=== PATIENT | female | born 1975 | race Caucasian/White ===

== ENCOUNTER 2016-10-03 21:22 | Emergency (ER) | payer MEDICAID ==
[~2016-10-03] VITALS: Ht 162.6 cm; Wt 86.4 kg
[2016-10-03 22:02] VITALS: BP 135/89
== END 2016-10-03 22:37 | disposition home or self-care (01) ==
LOC: EMS 21:25
DX: J40 Bronchitis, not specified as acute or chronic (principal); J32.9 Chronic sinusitis, unspecified; H57.8 Other specified disorders of eye and adnexa
CPT/HCPCS: 99283

== ENCOUNTER 2019-05-05 21:17 | Inpatient (IN) | payer MEDICAID ==
[~2019-05-05] VITALS: Ht 165.1 cm; Wt 77.3 kg
[2019-05-05 22:05] LABS: BASOPHILS % (AUTO) 0.9 % (0.0-2.0); EOSINOPHILS % (AUTO) 6.4 % (1.0-6.0); HEMATOCRIT 27.3 % (36-46); HEMOGLOBIN 8.6 g/dL (12.0-16.0); LYMPHOCYTES # (AUTO) 1.7 K/uL (1.0-4.8); LYMPHOCYTES % (AUTO) 22.4 % (22.0-44.0); MEAN CORPUSCULAR HEMOGLOBIN 22.4 pg (26.0-34.0); MEAN CORPUSCULAR HGB CONC 31.4 G/dL (31.0-37.0); MEAN CORPUSCULAR VOLUME 71 fL (80-100); MONOCYTES # (AUTO) 0.5 K/uL (0.1-1.0); MONOCYTES % (AUTO) 6.8 % (2.0-9.0); NEUTROPHILS # (AUTO) 4.9 K/uL (1.8-7.7); NEUTROPHILS % (AUTO) 63.5 % (40.0-70.0); PLATELET COUNT (AUTO) 344 K/uL (150-450); RED BLOOD CELL COUNT(AUTO) 3.82 MIL/uL (4.00-5.20); RED CELL DISTRIBUTION WIDTH 17.6 % (11.5-14.5)
[2019-05-05 22:16] LABS: ANION GAP 7 mmol/L (8-16); CALCIUM, TOTAL 7.9 mg/dL (8.8-10.5); CARBON DIOXIDE 28 mmol/L (22-29); CHLORIDE 108 mmol/L (98-107); CREATININE 0.78 mg/dL (0.60-1.30); GLOMERULAR FILTR. RATE CALC > 60 mL/min (>60); GLUCOSE,RANDOM 99 mg/dL (70-110); POTASSIUM 3.4 mmol/L (3.5-5.1); SODIUM SERUM 143 mmol/L (136-145); UREA NITROGEN, BLOOD 10 mg/dL (7-18)
[2019-05-05 22:22] LABS: PROTHROMBIN TIME 10.6 SEC (9.4-11.6)
[2019-05-05 22:24] LABS: ALANINE AMINOTRANSFERASE 34 U/L (12-78); ALBUMIN 3.3 g/dL (3.4-5.0); ALKALINE PHOSPHATASE 98 U/L (46-116); ASPARTATE AMINOTRANSFERASE 27 U/L (15-37); BILIRUBIN,TOTAL 0.1 mg/dL (0.1-1.0); TOTAL PROTEIN, SERUM 6.8 g/dL (6.4-8.2)
[2019-05-06] MEDS ORDERED: MedroxyPROGESTERone ACET 5 MG TABLET PO ONE ×2 (01:15→06:00)
[2019-05-06] MEDS ORDERED: ONDANSETRON HCL 4 MG/2 ML VIAL IVP PRN ×2 (01:30→08:00)
[2019-05-06] MEDS ORDERED: ACETAMINOPHEN 325 MG TABLET PO PRN ×2 (01:30→08:00)
[2019-05-06] MEDS ORDERED: 0.9% SODIUM CHLORIDE 10 ML SYRINGE IVP PRN (01:30)
[2019-05-06 01:37] LABS: APPEARANCE,URINE CLOUDY (CLEAR); GLUCOSE, URINE (UA) NEGATIVE (NEGATIVE); KETONES,URINE 15 mg/dL (NEGATIVE); LEUKOCYTE ESTERASE ,URINE MODERATE (NEGATIVE); NITRATE,URINE NEGATIVE (NEGATIVE); OCCULT BLOOD,URINE LARGE (NEGATIVE); PROTEIN,URINE SEE CONFIRM (NEGATIVE)
[2019-05-06 01:50] LABS: BILIRUBIN,URINE PRELIM. POSITIVE (NEGATIVE)
[2019-05-06 01:54] LABS: SULFOSALICYLIC ACID,URINE 4+ (Negative)
[2019-05-06 01:55] LABS: RBC,URINE Full Field /HPF (0-2)
[2019-05-06 01:57] LABS: BACTERIA,URINE Rare /HPF (None Seen)
[2019-05-06 01:58] LABS: SQUAMOUS EPITHELIAL CELL,UR Few /LPF (None Seen)
[2019-05-06 04:46] LABS: HEMATOCRIT 23.6 % (36-46); HEMOGLOBIN 7.4 g/dL (12.0-16.0)
[2019-05-06] MEDS ORDERED: ZOLPIDEM TARTRATE 5 MG TABLET PO PRN (08:00)
[2019-05-06] MEDS ORDERED: MORPHINE SULFATE 2 MG/ML SYRINGE IVP PRN (08:00)
[2019-05-06] MEDS ORDERED: MAGNESIUM HYDROXIDE SUSPENSION 30 ML UDCUP PO PRN (08:00)
[2019-05-06] MEDS ORDERED: HYDROCODONE/ACETAMINOPHEN 5-325 MG TABLET PO PRN (08:00)
[2019-05-06] MEDS ORDERED: BISACODYL 10 MG RECTAL RECTAL SUPPOSITORY PR PRN (08:00)
[2019-05-06] MEDS: PANTOPRAZOLE SODIUM 40 MG DR TABLET PO SCH (09:20)
[2019-05-06] MEDS: DOCUSATE SODIUM 100 MG CAPSULE PO SCH ×2 (09:20→21:58)
[2019-05-06 10:48] LABS: EOSINOPHILS % (AUTO) 7.1 % (1.0-6.0); HEMATOCRIT 23.9 % (36-46); HEMOGLOBIN 7.5 g/dL (12.0-16.0); LYMPHOCYTES # (AUTO) 1.9 K/uL (1.0-4.8); LYMPHOCYTES % (AUTO) 25.2 % (22.0-44.0); MEAN CORPUSCULAR HEMOGLOBIN 22.4 pg (26.0-34.0); MEAN CORPUSCULAR HGB CONC 31.4 G/dL (31.0-37.0); MEAN CORPUSCULAR VOLUME 72 fL (80-100); MONOCYTES # (AUTO) 0.7 K/uL (0.1-1.0); MONOCYTES % (AUTO) 8.8 % (2.0-9.0); NEUTROPHILS # (AUTO) 4.4 K/uL (1.8-7.7); NEUTROPHILS % (AUTO) 57.9 % (40.0-70.0); PLATELET COUNT (AUTO) 279 K/uL (150-450); RED BLOOD CELL COUNT(AUTO) 3.34 MIL/uL (4.00-5.20); RED CELL DISTRIBUTION WIDTH 17.3 % (11.5-14.5)
[2019-05-06] MEDS ORDERED: LEUPROLIDE ACETATE 7.5 MG KIT IM ONE (11:30)
[2019-05-06] MEDS ORDERED: IRON SUCROSE COMPLEX 200 MG in SODIUM CHLORIDE 0.9% 100 ML IV ONE (11:30)
[2019-05-06 16:42] VITALS: BP 129/72
[2019-05-06 19:25] VITALS: BP 124/72
[2019-05-06 23:26] VITALS: BP 116/55
[2019-05-07 05:24] VITALS: BP 130/69
[2019-05-07 07:59] VITALS: BP 147/78
[2019-05-07] MEDS ORDERED: RINGERS SOLUTION,LACTATED 1,000 ML IV ONE (08:15)
[2019-05-07] MEDS: DOCUSATE SODIUM 100 MG CAPSULE PO SCH (08:54)
[2019-05-07] MEDS: PANTOPRAZOLE SODIUM 40 MG DR TABLET PO SCH (08:55)
[2019-05-07] MEDS ORDERED: LEUPROLIDE ACETATE 3.75 MG IM ONE (10:45)
[2019-05-07] MEDS ORDERED: DOCU-275 PO (11:44)
[2019-05-07] MEDS ORDERED: [UNRECOGNIZED DRUG - OTHER] PO (11:44)
[2019-05-07] MEDS ORDERED: LIDOCAINE/PF 2% 5 ML VIAL IM ONE (14:59)
[2019-05-07] MEDS ORDERED: PROPOFOL 1% 20 ML VIAL IVP ONE (14:59)
[2019-05-07] MEDS ORDERED: FentaNYL CITRATE-PF 100 MCG/2 ML VIAL IVP ONE (14:59)
[2019-05-07] MEDS ORDERED: MIDAZOLAM HCL 2 MG/2 ML VIAL IVP ONE (14:59)
== END 2019-05-07 15:00 | disposition home or self-care (01) | DRG 517 ==
LOC: EMS 21:18 → 4E 05-06 16:13
PROVIDERS: ADMIT Internal Medicine; ATTEND Internal Medicine
PROC: 0UDB7ZZ Extraction of Endometrium, Via Natural or Artificial Opening (ICD-10-PCS; principal; 2019-05-07 10:00)
DX: D25.9 Leiomyoma of uterus, unspecified (principal); D62 Acute posthemorrhagic anemia; N92.1 Excessive and frequent menstruation with irregular cycle; N94.6 Dysmenorrhea, unspecified; E87.6 Hypokalemia; E66.9 Obesity, unspecified; Z68.28 Body mass index [BMI] 28.0-28.9, adult
CPT/HCPCS: 76856; 85014; 85018; 86850; 86900; 86901; 86920; 87081; 88305; G0378; J1756; J1950; J2250; J2704; J3010; J3490; J7050; J7120; J9217

== ENCOUNTER 2019-05-10 00:09 | Inpatient (IN) | payer MEDICAID ==
[2019-05-10] VITALS (9 sets, daily range): BP systolic 102–113; BP diastolic 48–64
[~2019-05-10] VITALS: Ht 162.6 cm; Wt 86.4 kg
[~2019-05-10 00:09] MED LIST: DOCU-275 PO; [UNRECOGNIZED DRUG - OTHER] PO
[2019-05-10] MEDS ORDERED: SODIUM CHLORIDE 0.9% 1,000 ML IV ONE (02:45)
[2019-05-10 02:51] LABS: BASOPHILS % (AUTO) 0.8 % (0.0-2.0); EOSINOPHILS % (AUTO) 4.4 % (1.0-6.0); HEMATOCRIT 24.4 % (36-46); HEMOGLOBIN 7.6 g/dL (12.0-16.0); LYMPHOCYTES # (AUTO) 1.7 K/uL (1.0-4.8); LYMPHOCYTES % (AUTO) 13.8 % (22.0-44.0); MEAN CORPUSCULAR HEMOGLOBIN 22.9 pg (26.0-34.0); MEAN CORPUSCULAR VOLUME 74 fL (80-100); MONOCYTES # (AUTO) 0.8 K/uL (0.1-1.0); MONOCYTES % (AUTO) 6.5 % (2.0-9.0); NEUTROPHILS # (AUTO) 9.3 K/uL (1.8-7.7); NEUTROPHILS % (AUTO) 74.5 % (40.0-70.0); PLATELET COUNT (AUTO) 328 K/uL (150-450); RED BLOOD CELL COUNT(AUTO) 3.31 MIL/uL (4.00-5.20); RED CELL DISTRIBUTION WIDTH 17.1 % (11.5-14.5)
[2019-05-10 02:53] LABS: ANION GAP 4 mmol/L (8-16); CALCIUM, TOTAL 8.1 mg/dL (8.8-10.5); CARBON DIOXIDE 29 mmol/L (22-29); CHLORIDE 104 mmol/L (98-107); GLOMERULAR FILTR. RATE CALC > 60 mL/min (>60); GLUCOSE,RANDOM 139 mg/dL (70-110); POTASSIUM 4.7 mmol/L (3.5-5.1); SODIUM SERUM 137 mmol/L (136-145); UREA NITROGEN, BLOOD 7 mg/dL (7-18)
[2019-05-10 02:59] LABS: ALANINE AMINOTRANSFERASE 27 U/L (12-78); ALBUMIN 3.3 g/dL (3.4-5.0); ALKALINE PHOSPHATASE 91 U/L (46-116); ASPARTATE AMINOTRANSFERASE 21 U/L (15-37); BILIRUBIN,TOTAL 0.2 mg/dL (0.1-1.0); TOTAL PROTEIN, SERUM 6.9 g/dL (6.4-8.2)
[2019-05-10 03:37] LABS: APPEARANCE,URINE CLOUDY (CLEAR); BILIRUBIN,URINE NEGATIVE (NEGATIVE); GLUCOSE, URINE (UA) NEGATIVE (NEGATIVE); KETONES,URINE NEGATIVE (NEGATIVE); LEUKOCYTE ESTERASE ,URINE SMALL (NEGATIVE); NITRATE,URINE NEGATIVE (NEGATIVE); OCCULT BLOOD,URINE LARGE (NEGATIVE); PH,URINE 5.5 (5.0-8.0); PROTEIN,URINE POS 1+ (NEGATIVE); UROBILINOGEN,URINE 0.2 mg/dL (<=1.0)
[2019-05-10 03:46] LABS: BACTERIA,URINE None Seen /HPF (None Seen); RBC,URINE >100 /HPF (0-2); SQUAMOUS EPITHELIAL CELL,UR Rare /LPF (None Seen)
[2019-05-10] MEDS ORDERED: SODIUM CHLORIDE 0.9% 500 ML IV ONE (04:13)
[2019-05-10] MEDS ORDERED: MedroxyPROGESTERone ACET 5 MG TABLET PO ONE (05:30)
[2019-05-10] MEDS ORDERED: ACETAMINOPHEN 325 MG TABLET PO PRN ×2 (05:30→07:45)
[2019-05-10] MEDS ORDERED: ONDANSETRON HCL 4 MG/2 ML VIAL IVP PRN ×2 (05:30→07:45)
[2019-05-10 13:12] LABS: BASOPHILS % (AUTO) 0.7 % (0.0-2.0); EOSINOPHILS % (AUTO) 4.1 % (1.0-6.0); HEMATOCRIT 27.6 % (36-46); HEMOGLOBIN 8.7 g/dL (12.0-16.0); LYMPHOCYTES # (AUTO) 1.9 K/uL (1.0-4.8); LYMPHOCYTES % (AUTO) 19.6 % (22.0-44.0); MEAN CORPUSCULAR HGB CONC 31.5 G/dL (31.0-37.0); MEAN CORPUSCULAR VOLUME 76 fL (80-100); MONOCYTES # (AUTO) 0.7 K/uL (0.1-1.0); NEUTROPHILS # (AUTO) 6.7 K/uL (1.8-7.7); NEUTROPHILS % (AUTO) 68.6 % (40.0-70.0); PLATELET COUNT (AUTO) 295 K/uL (150-450); RED BLOOD CELL COUNT(AUTO) 3.62 MIL/uL (4.00-5.20); RED CELL DISTRIBUTION WIDTH 18.7 % (11.5-14.5)
[2019-05-10] MEDS ORDERED: MEDR2.5T PO (16:52)
== END 2019-05-10 16:56 | disposition home or self-care (01) | DRG 532 ==
LOC: EMS 00:11 → AHU 11:51
PROVIDERS: ADMIT Obstetrics & Gynecology; ATTEND Obstetrics & Gynecology
PROC: 30233N1 Transfusion of Nonautologous Red Blood Cells into Peripheral Vein, Percutaneous Approach (ICD-10-PCS; principal; 2019-05-10)
DX: D25.9 Leiomyoma of uterus, unspecified (principal); D62 Acute posthemorrhagic anemia; N92.1 Excessive and frequent menstruation with irregular cycle; D72.829 Elevated white blood cell count, unspecified
CPT/HCPCS: 36430; 86850; 86900; 86901; 86920; 93005; 99291; G0378; J7030; J7040; P9016

== ENCOUNTER 2019-05-19 21:02 | Emergency (ER) | payer MEDICAID ==
[~2019-05-19] VITALS: Ht 165.1 cm; Wt 86.4 kg
[~2019-05-19 21:02] MED LIST changes: +MEDR2.5T PO
[2019-05-19] MEDS ORDERED: FERR-89 PO (21:15)
[2019-05-19 21:59] LABS: EOSINOPHILS % (AUTO) 8.1 % (1.0-6.0); HEMATOCRIT 29.4 % (36-46); HEMOGLOBIN 9.3 g/dL (12.0-16.0); LYMPHOCYTES # (AUTO) 2.1 K/uL (1.0-4.8); LYMPHOCYTES % (AUTO) 29.4 % (22.0-44.0); MEAN CORPUSCULAR HEMOGLOBIN 25.6 pg (26.0-34.0); MEAN CORPUSCULAR HGB CONC 31.8 G/dL (31.0-37.0); MEAN CORPUSCULAR VOLUME 81 fL (80-100); MONOCYTES # (AUTO) 0.6 K/uL (0.1-1.0); MONOCYTES % (AUTO) 8.6 % (2.0-9.0); NEUTROPHILS # (AUTO) 3.8 K/uL (1.8-7.7); NEUTROPHILS % (AUTO) 52.9 % (40.0-70.0); PLATELET COUNT (AUTO) 400 K/uL (150-450); RED BLOOD CELL COUNT(AUTO) 3.66 MIL/uL (4.00-5.20); RED CELL DISTRIBUTION WIDTH 24.7 % (11.5-14.5)
[2019-05-19 22:29] LABS: ANION GAP 6 mmol/L (8-16); CALCIUM, TOTAL 8.4 mg/dL (8.8-10.5); CARBON DIOXIDE 28 mmol/L (22-29); CHLORIDE 104 mmol/L (98-107); CREATININE 0.85 mg/dL (0.60-1.30); GLOMERULAR FILTR. RATE CALC > 60 mL/min (>60); GLUCOSE,RANDOM 132 mg/dL (70-110); POTASSIUM 3.6 mmol/L (3.5-5.1); SODIUM SERUM 138 mmol/L (136-145); UREA NITROGEN, BLOOD 5 mg/dL (7-18)
[2019-05-19 22:41] LABS: ALANINE AMINOTRANSFERASE 27 U/L (12-78); ALBUMIN 3.7 g/dL (3.4-5.0); ALKALINE PHOSPHATASE 105 U/L (46-116); ASPARTATE AMINOTRANSFERASE 21 U/L (15-37); BILIRUBIN,TOTAL 0.2 mg/dL (0.1-1.0); HCG,QUANTITATIVE < 1 mIU/mL (0-6); TOTAL PROTEIN, SERUM 7.8 g/dL (6.4-8.2)
[2019-05-19 23:52] VITALS: BP 112/62
== END 2019-05-20 00:01 | disposition home or self-care (01) ==
LOC: EMS 21:04
DX: N93.9 Abnormal uterine and vaginal bleeding, unspecified (principal); D64.9 Anemia, unspecified
CPT/HCPCS: 86850; 86900; 86901

== ENCOUNTER 2021-04-28 07:26 | Emergency (ER) | payer MEDICAID, OTHER ==
[~2021-04-28] VITALS: Ht 162.6 cm; Wt 84.1 kg
[~2021-04-28 07:26] MED LIST changes: -DOCU-275 PO; +FERR-89 PO; -MEDR2.5T PO; -[UNRECOGNIZED DRUG - OTHER] PO
[2021-04-28] MEDS ORDERED: ALBUTEROL SULFATE HFA 90 MCG/PUFF 8 GM INHALER IH ONE (09:00)
[2021-04-28 09:29] LABS: COVID AG,FIA SOURCE NASOPHARYNGEAL
[2021-04-28] MEDS ORDERED: AZITHROMYCIN 500 MG TABLET PO ONE (11:00)
[2021-04-28 11:25] VITALS: BP 114/66
== END 2021-04-28 11:25 | disposition home or self-care (01) ==
LOC: EMS 07:31
DX: J18.9 Pneumonia, unspecified organism (principal); E11.9 Type 2 diabetes mellitus without complications; D25.9 Leiomyoma of uterus, unspecified; Z20.822 Contact with and (suspected) exposure to COVID-19
CPT/HCPCS: 71045; 87426; Q9967; U0003; 94640; 99284; J3535

== ENCOUNTER 2022-01-25 10:50 | Emergency (ER) | payer OTHER ==
[~2022-01-25] VITALS: Ht 157.5 cm; Wt 86.4 kg
[~2022-01-25 10:50] MED LIST changes: -FERR-89 PO; +FERR325T27 PO
[2022-01-25] MEDS ORDERED: AMOX1TAB16 PO (12:17)
[2022-01-25] MEDS ORDERED: IBUP-2070 PO (12:21)
[2022-01-25 12:30] VITALS: BP 112/62
== END 2022-01-25 13:09 | disposition home or self-care (01) ==
LOC: EMS 10:51
DX: H66.91 Otitis media, unspecified, right ear (principal); E11.9 Type 2 diabetes mellitus without complications; D25.9 Leiomyoma of uterus, unspecified; Z90.710 Acquired absence of both cervix and uterus; Z86.2 Personal history of diseases of the blood and blood-forming organs and certain disorders involving the immune mechanism; Z98.890 Other specified postprocedural states
CPT/HCPCS: 99283; Z7502

== ENCOUNTER 2023-08-22 07:18 | Emergency (ER) | payer OTHER ==
[~2023-08-22] VITALS: Ht 165.1 cm; Wt 90.0 kg
[~2023-08-22 07:18] MED LIST changes: +AMOX1TAB16 PO; +IBUP-1492 PO
[2023-08-22] MEDS ORDERED: METF-446 PO ×2 (07:40→13:56)
[2023-08-22] MEDS ORDERED: SIMV-260 PO (07:40)
[2023-08-22] MEDS: SODIUM CHLORIDE 0.9% 1,000 ML IV ONE (08:00)
[2023-08-22 08:08] LABS: APPEARANCE,URINE HAZY (CLEAR); BILIRUBIN,URINE NEGATIVE (NEGATIVE); COLOR,URINE YELLOW (YELLOW); GLUCOSE, URINE (UA) >=1000 mg/dL (NEGATIVE); LEUKOCYTE ESTERASE ,URINE NEGATIVE (NEGATIVE); NITRATE,URINE NEGATIVE (NEGATIVE); OCCULT BLOOD,URINE SMALL (NEGATIVE); PROTEIN,URINE TRACE mg/dL (NEGATIVE); UROBILINOGEN,URINE <=1.0 mg/dL (<=1.0)
[2023-08-22 08:13] LABS: BACTERIA,URINE Moderate /HPF (None Seen); SQUAMOUS EPITHELIAL CELL,UR Many /LPF (None Seen); WBC,URINE 0-2 /HPF (0-5)
[2023-08-22 08:27] LABS: EOSINOPHILS % (AUTO) 4.6 % (1.0-6.0); HEMATOCRIT 42.4 % (36-46); HEMOGLOBIN 14.1 g/dL (12.0-16.0); LYMPHOCYTES # (AUTO) 1.6 K/uL (1.0-4.8); LYMPHOCYTES % (AUTO) 24.4 % (22.0-44.0); MEAN CORPUSCULAR HEMOGLOBIN 28.3 pg (26.0-34.0); MEAN CORPUSCULAR HGB CONC 33.3 G/dL (31.0-37.0); MEAN CORPUSCULAR VOLUME 85 fL (80-100); MONOCYTES # (AUTO) 0.3 K/uL (0.1-1.0); MONOCYTES % (AUTO) 4.6 % (2.0-9.0); NEUTROPHILS # (AUTO) 4.3 K/uL (1.8-7.7); NEUTROPHILS % (AUTO) 65.4 % (40.0-70.0); PLATELET COUNT (AUTO) 286 K/uL (150-450); RED BLOOD CELL COUNT(AUTO) 4.98 MIL/uL (4.00-5.20); RED CELL DISTRIBUTION WIDTH 13.3 % (11.5-14.5); WHITE BLOOD COUNT (AUTO) 6.6 K/uL (4.5-11.0)
[2023-08-22 08:36] LABS: ANION GAP 7 mmol/L (8-16); CALCIUM, TOTAL 9.3 mg/dL (8.8-10.5); CARBON DIOXIDE 27 mmol/L (22-29); CHLORIDE 99 mmol/L (98-107); CREATININE 0.72 mg/dL (0.60-1.30); GLOMERULAR FILTR. RATE CALC > 60 mL/min (>60); GLUCOSE,RANDOM 320 mg/dL (70-110); POTASSIUM 4.2 mmol/L (3.5-5.1); SODIUM SERUM 133 mmol/L (136-145); UREA NITROGEN, BLOOD 11 mg/dL (7-18)
[2023-08-22 08:40] LABS: ACETONE,BLOOD NEGATIVE (NEGATIVE)
[2023-08-22 08:47] LABS: TROPONIN I-HIGH SENSITIVITY Less Than 4 ng/L (<51)
[2023-08-22 08:49] LABS: B-TYPE NATRIURETIC PEPTIDE 8 pg/mL (0-100)
[2023-08-22 08:54] LABS: ALANINE AMINOTRANSFERASE 46 U/L (12-78); ALBUMIN 3.5 g/dL (3.4-5.0); ALKALINE PHOSPHATASE 160 U/L (46-116); ASPARTATE AMINOTRANSFERASE 23 U/L (15-37); BILIRUBIN,TOTAL 0.4 mg/dL (0.1-1.0); HCG,QUANTITATIVE 2 mIU/mL (0-6); TOTAL PROTEIN, SERUM 7.7 g/dL (6.4-8.2)
[2023-08-22 09:33] VITALS: TEMP 98.4
[2023-08-22] MEDS: INSULIN REGULAR, HUMAN 100 UNITS/ML IVP ONE (10:35)
[2023-08-22 12:35] LABS: GLUCOMETER DEV NAME(LOC) ER.6; GLUCOSE,POINT OF CARE 214 MG/DL (70-110)
[2023-08-22 15:00] VITALS: BP 110/64; PULSE 64; RESP 18
== END 2023-08-22 15:00 | disposition home or self-care (01) ==
LOC: EMS 07:18
DX: E11.65 Type 2 diabetes mellitus with hyperglycemia (principal); D64.9 Anemia, unspecified; Z90.710 Acquired absence of both cervix and uterus
CPT/HCPCS: 99285; 96374; 71045; 96361; 80053; 81001; 82009; 82962; 83880; 84484; 84702; 85025; 36415; 87086; 87186; 93005; J1815